=== PATIENT | male | born 1990 | race Caucasian/White ===

== ENCOUNTER 2021-12-07 04:13 | Emergency (ER) | payer OTHER ==
[~2021-12-07] VITALS: Ht 165.1 cm; Wt 86.7 kg
[2021-12-07 04:31] VITALS: BP 138/89
--- NOTE | 2021-12-07 04:37 | NUR ---
patient to bed 12 ambulatory
--- NOTE | 2021-12-07 04:42 | NUR ---
Dr. Carver examining patient.
[2021-12-07] MEDS ORDERED: BACITRACIN OINT 500 UNITS/GM PKT TP ONE (04:55)
[2021-12-07] MEDS ORDERED: LIDOCAINE/EPI 1% 1:100000 20 ML VIAL INJ ONE (04:55)
--- NOTE | 2021-12-07 05:18 | NUR ---
SUTURES DONE BY DR. SOL. BACITRACIN AND NONE ADHERENT DRESSING APPLIED. DR. SOL DISCHARGE PT.
--- NOTE | 2021-12-07 05:19 | NUR ---
Patient discharged BY DR. SOL. Written and verbal after care instructions given and explained. Patient verbalized understanding. Ambulatory with steady gait ACCOMPANIED BY SIGNIFICANT OTHER. SUTURE CARE AND REMOVAL DISCUSSED BY DR. SOL.
== END 2021-12-07 05:13 | disposition home or self-care (01) ==
LOC: MED 04:13
DX: S01.111A Laceration without foreign body of right eyelid and periocular area, initial encounter (principal); F10.129 Alcohol abuse with intoxication, unspecified; H54.61 Unqualified visual loss, right eye, normal vision left eye; W19.XXXA Unspecified fall, initial encounter; Y93.89 Activity, other specified; Y92.89 Other specified places as the place of occurrence of the external cause; Y99.8 Other external cause status
CPT/HCPCS: 12011; 99282; J2001